=== PATIENT | male | born 1990 | race Caucasian/White ===

== ENCOUNTER 2021-09-12 13:30 | Outpatient (CLI) | payer OTHER | END 2021-09-12 13:43 | disposition home or self-care (01) | LOC: RAD 13:30 | PROVIDERS: ATTEND Orthopaedic Surgery | DX: S82.841A Displaced bimalleolar fracture of right lower leg, initial encounter for closed fracture (principal) ==

== ENCOUNTER 2021-10-17 09:53 | Outpatient (CLI) | payer OTHER | END 2021-10-17 10:00 | disposition home or self-care (01) | LOC: RAD 09:53 | PROVIDERS: ATTEND Orthopaedic Surgery | DX: S82.64XA Nondisplaced fracture of lateral malleolus of right fibula, initial encounter for closed fracture (principal) ==